=== PATIENT | female | born 1975 | race Caucasian/White ===

== ENCOUNTER → 2018-06-03 | Outpatient (CLI) | payer OTHER | LOC: FIMAGING 14:56 | PROVIDERS: ATTEND Obstetrics & Gynecology | DX: Z12.31 Encounter for screening mammogram for malignant neoplasm of breast (principal) ==

== ENCOUNTER → 2018-06-17 | Outpatient (CLI) | payer OTHER | LOC: FIMAGING 09:51 | PROVIDERS: ATTEND Obstetrics & Gynecology | DX: N60.02 Solitary cyst of left breast (principal) ==

== ENCOUNTER 2019-02-05 09:16 | Emergency (ER) | payer OTHER ==
[2019-02-05] MEDS ORDERED: CEPHALEXIN 500 MG CAP PO ONE (10:21)
--- NOTE | 2019-02-05 10:27 | EDPHY ---
H & P Stated Complaint: umbilical hernia surg 2 weeks ago elisa/now bleeding tender Time Seen by Provider: 02/05/19 09:43 HPI/ROS: Chief complaint: Postoperative bleeding History of present illness: This is a 43-year-old female who presents to the emergency department for evaluation of postoperative bleeding. She underwent an umbilical hernia repair with mesh placement just over [address] Myles Machado. She has been doing well. She had a 2 week followup and everything appeared well. However last night she developed some discomfort and redness at the surgical incisions site. This morning she woke up and noted bloody discharge. Pain is improved. Redness has resolved upon drainage. She denies associated signs or symptoms including no fevers, no nausea, vomiting. - Personal History LMP (Females 10-55): 22-28 Days Ago Current Tetanus Diphtheria and Acellular Pertussis (TDAP): Unsure - Medical/Surgical History Hx Asthma: No Hx Chronic Respiratory Disease: No Hx Diabetes: No Hx Cardiac Disease: No Hx Renal Disease: No Hx Cirrhosis: No Hx Alcoholism: No Hx HIV/AIDS: No Hx Splenectomy or Spleen Trauma: No Other PMH: umbilical hernia surgery - Social History Smoking Status: Never smoked - Physical Exam Exam: General: Alert, nontoxic. Cardiac: Regular rate and rhythm. Lungs: Clear to auscultation bilaterally. Abdomen: Soft, nondistended. Mild tenderness around the umbilicus. Skin: There is irritation around the umbilicus that appears to be from Band- Aids is the erythema follows a pattern consistent with a bandage have been in place. No other significant erythema there is no edema. There is serosanguineous discharge. Does not appear to be pustular. There is no foul smell to it. Constitutional: Initial Vital Signs Temperature (C) 36.8 C 02/05/19 09:23 Heart Rate 71 02/05/19 09:23 Respiratory Rate 18 02/05/19 09:23 Blood Pressure 94/74 L 02/05/19 09:23 O2 Sat (%) 96 02/05/19 09:23 O2 Delivery Mode Room Air Allergies/Adverse Reactions: No Known Allergies Allergy (Verified 02/05/19 09:23) Home Medications: Medication Instructions Recorded Cephalexin [Keflex] 500 mg PO TID 10 Days cap 02/05/19 Medical Decision Making ED Course/Re-evaluation: Patient is seen under the supervision of my secondary supervising physician Dr. Trang Barger. Patient presents to the emergency department for bloody discharge from a wound where she had an umbilica hernia repaired with mesh. Patient is nontoxic. She is afebrile. Bloody discharge is noted. There is no significant erythema or edema. No foul smell. I have discussed the case with patient's surgeon, Dr. Myles Machado on the phone. As the lesion is draining he does not recommend any imaging studies. He believes this is likely a seroma/hematoma that is draining. However out of an abundance of caution he does recommend starting patient on Keflex to ensure if there is any infectious component that it is controlled so the mesh does not get infected. Home care is discussed with the patient including warm compresses. She is to call and make a follow-up appoint with Dr. Machado at his office this week. Strict return precautions are given. Patient voiced understanding and agreement with plan. Differential Diagnosis: Included but not limited to wound dehiscence, seroma, hematoma drainage, infectious pathology - Data Points Medications Given: Discontinued Medications Cephalexin HCl (Keflex) 500 mg PO EDNOW ONE PRN Reason: Protocol Stop: 02/05/19 10:22 Last Admin: 02/05/19 10:38 Dose: 500 mg Departure - Departure Disposition: Home, Routine, Self-Care Clinical Impression: Draining postoperative wound Qualifiers: Encounter type: initial encounter Qualified Code(s): T81.89XA - Other complications of procedures, not elsewhere classified, initial encounter Condition: Good Instructions: Cephalexin (By mouth), Acute Wounds (ED) Additional Instructions: Please call your surgeon's office tomorrow and arrange a follow-up this week Take antibiotics as prescribed until finished even if feeling better Apply warm compresses to the site, keep it clean with soap and water and apply a dressing. If symptoms worsen or new symptoms develop including the development of fever, increasing pain, increasing discharge please return to the emergency room for recheck Referrals: NONE *PRIMARY CARE P,. [Primary Care Provider] - As per Instructions Mukesh Machado MD [Medical Doctor] - As per Instructions Prescriptions: Cephalexin [Keflex] 500 mg PO TID 10 Days cap
[2019-02-05 10:42] VITALS: BP 115/78
== END 2019-02-05 10:40 | disposition home or self-care (01) ==
DX: L76.22 Postprocedural hemorrhage of skin and subcutaneous tissue following other procedure (principal); Z98.890 Other specified postprocedural states